=== PATIENT | male | born 1945 | race Caucasian/White ===

== ENCOUNTER → 2017-04-28 | Outpatient (REF) | payer OTHER ==
[2017-04-28 17:58] LABS: POTASSIUM SERUM 3.9 MEQ/L (3.5-5.1)
== END ==
LOC: M SFHCCLAY 09:45
PROVIDERS: ATTEND Nurse Practitioner Family
DX: R73.9 Hyperglycemia, unspecified (principal); I10 Essential (primary) hypertension

== ENCOUNTER 2018-01-31 12:33 | Emergency (ER) | payer OTHER ==
[2018-01-31 13:47] LABS: BASO # 0.1 10^3/uL (0.0-0.2); BASO % 0.5 % (0.0-1.0); EOS # 0.6 10^3/uL (0.0-0.50); EOS % 4.9 % (0.0-3.0); HEMATOCRIT 45.5 % (42.0-52.0); HEMOGLOBIN 15.4 g/dl (14.0-18.0); IMMATURE GRANULOCYTE % 0.3 % (0-3.0); LYMPH # 1.3 10^3/uL (1.5-4.5); LYMPH % 10.8 % (24.0-44.0); MEAN CORPUSCULAR HEMOGLOBIN 30.1 pg (27.0-33.0); MEAN CORPUSCULAR HGB CONC 33.8 g/dl (32.0-36.5); MEAN CORPUSCULAR VOLUME 88.9 fl (80.0-96.0); MONO % 8.1 % (0.0-5.0); NEUTROPHILS # 8.8 10^3/uL (1.8-7.7); NEUTROPHILS % 75.4 % (36.0-66.0); PLATELET COUNT, AUTOMATED 201 10^3/uL (150-450); RED BLOOD COUNT 5.12 10^6/uL (4.30-6.10); RED CELL DISTRIBUTION WIDTH 13.2 % (11.5-14.5); WHITE BLOOD COUNT 11.7 10^3/uL (4.0-10.0)
[2018-01-31 14:01] LABS: ANION GAP 7 MEQ/L (8-16); BLOOD UREA NITROGEN 19 MG/DL (7-18); CARBON DIOXIDE LEVEL 32 MEQ/L (21-32); CHLORIDE LEVEL 104 MEQ/L (98-107); CREATININE FOR GFR 1.35 MG/DL (0.70-1.30); GLOMERULAR FILTRATION RATE 55.6 (>42); GLUCOSE, FASTING 108 MG/DL (70-100); POTASSIUM SERUM 3.4 MEQ/L (3.5-5.1); SODIUM LEVEL 143 MEQ/L (136-145)
[2018-01-31] MEDS ORDERED: ISOVUE-370 76% 100ML VIAL (Q9967) As Ordered (14:05)
== END 2018-01-31 15:41 | disposition home or self-care (01) ==
LOC: M ED 12:33
DX: D17.39 Benign lipomatous neoplasm of skin and subcutaneous tissue of other sites (principal); J18.9 Pneumonia, unspecified organism; I10 Essential (primary) hypertension; G30.9 Alzheimer's disease, unspecified; Z79.899 Other long term (current) drug therapy; Z79.82 Long term (current) use of aspirin; Z88.0 Allergy status to penicillin; Z88.8 Allergy status to other drugs, medicaments and biological substances; Z87.891 Personal history of nicotine dependence; Z80.0 Family history of malignant neoplasm of digestive organs; Z80.1 Family history of malignant neoplasm of trachea, bronchus and lung
CPT/HCPCS: Q9967

== ENCOUNTER → 2018-02-13 | Outpatient (CLI) | payer OTHER | LOC: M CLY 09:48 | DX: J98.6 Disorders of diaphragm (principal); R91.8 Other nonspecific abnormal finding of lung field | CPT/HCPCS: 71046 ==

== ENCOUNTER → 2018-03-02 | Outpatient (CLI) | payer OTHER ==
[~2018-03-02] MED LIST: ISOVUE-370 76% 100ML VIAL (Q9967) As Ordered
== END ==
LOC: M RAD 08:36
DX: R91.8 Other nonspecific abnormal finding of lung field (principal); R05 Cough
CPT/HCPCS: Q9967

== ENCOUNTER → 2018-06-05 | Outpatient (CLI) | payer OTHER | LOC: M CLY 08:08 | DX: M25.561 Pain in right knee (principal) | CPT/HCPCS: 84550 ==

== ENCOUNTER → 2018-06-05 | Outpatient (REF) | payer OTHER ==
[2018-06-05 11:40] LABS: HEMATOCRIT 42.4 % (42.0-52.0); HEMOGLOBIN 14.5 g/dl (13.5-17.5); MEAN CORPUSCULAR HEMOGLOBIN 29.4 pg (27.0-33.0); MEAN CORPUSCULAR HGB CONC 34.2 g/dl (32.0-36.5); PLATELET COUNT, AUTOMATED 176 10^3/uL (150-450); RED BLOOD COUNT 4.93 10^6/uL (4.30-6.10); RED CELL DISTRIBUTION WIDTH 13.8 % (11.5-14.5); WHITE BLOOD COUNT 7.4 10^3/uL (4.0-10.0)
[2018-06-05 11:44] LABS: ANION GAP 8 MEQ/L (8-16); BLOOD UREA NITROGEN 16 MG/DL (7-18); CALCIUM LEVEL 8.3 MG/DL (8.8-10.2); CARBON DIOXIDE LEVEL 31 MEQ/L (21-32); CHLORIDE LEVEL 106 MEQ/L (98-107); CREATININE FOR GFR 1.32 MG/DL (0.70-1.30); GLOMERULAR FILTRATION RATE 56.9 (>42); GLUCOSE, FASTING 118 MG/DL (70-100); POTASSIUM SERUM 3.3 MEQ/L (3.5-5.1); RHEUMATOID FACTOR QUANT < 10.0 IU/ML (<15.0); SODIUM LEVEL 145 MEQ/L (136-145); URIC ACID 5.4 MG/DL (3.5-7.2)
[2018-06-05 12:14] LABS: ERYTHROCYTE SEDIMENTATION RATE 26 mm/hr (0-20)
[2018-06-07 00:06] LABS: ANTINUCLEAR ANTIBODIES DIRECT Negative (Negative); Lyme Disease IgG/IgM Antibodie <0.91 ISR (0.00-0.90); Lyme Disease IgM Ab Quantitati <0.80 index (0.00-0.79)
== END ==
LOC: M SFHCCLAY 08:01
DX: M25.561 Pain in right knee (principal)
CPT/HCPCS: 84550

== ENCOUNTER 2018-06-20 12:43 | Emergency (ER) | payer OTHER ==
[2018-06-20] MEDS: NS 1,000 ML IV (13:25)
[2018-06-20 13:29] LABS: BASO % 0.6 % (0.0-1.0); EOS # 0.2 10^3/uL (0.0-0.50); EOS % 3.2 % (0.0-3.0); HEMATOCRIT 41.5 % (42.0-52.0); LYMPH # 1.4 10^3/uL (1.5-4.5); LYMPH % 20.5 % (24.0-44.0); MEAN CORPUSCULAR HEMOGLOBIN 29.7 pg (27.0-33.0); MEAN CORPUSCULAR HGB CONC 33.7 g/dl (32.0-36.5); MEAN CORPUSCULAR VOLUME 87.9 fl (80.0-96.0); MONO # 0.7 10^3/uL (0.0-0.8); NEUTROPHILS # 4.3 10^3/uL (1.8-7.7); NEUTROPHILS % 65.7 % (36.0-66.0); PLATELET COUNT, AUTOMATED 222 10^3/uL (150-450); RED BLOOD COUNT 4.72 10^6/uL (4.30-6.10); RED CELL DISTRIBUTION WIDTH 13.5 % (11.5-14.5); WHITE BLOOD COUNT 6.6 10^3/uL (4.0-10.0)
[2018-06-20 13:42] LABS: INR 1.06; PROTHROMBIN TIME 13.9 SECONDS (12.1-14.4)
[2018-06-20 13:43] LABS: PARTIAL THROMBOPLASTIN TIME 26.2 SECONDS (25.4-37.6)
[2018-06-20 13:47] LABS: ALBUMIN 3.2 GM/DL (3.2-5.2); ALBUMIN/GLOBULIN RATIO 0.91 (1.00-1.93); ALKALINE PHOSPHATASE 46 U/L (45-117); ALT/SGPT 20 U/L (12-78); ANION GAP 6 MEQ/L (8-16); AST/SGOT 12 U/L (7-37); BILIRUBIN,DIRECT 0.1 MG/DL (0.0-0.2); BILIRUBIN,TOTAL 0.5 MG/DL (0.2-1.0); BLOOD UREA NITROGEN 13 MG/DL (7-18); CALCIUM LEVEL 8.4 MG/DL (8.8-10.2); CARBON DIOXIDE LEVEL 27 MEQ/L (21-32); CHLORIDE LEVEL 109 MEQ/L (98-107); CREATININE FOR GFR 1.16 MG/DL (0.70-1.30); GLOMERULAR FILTRATION RATE > 60.0 (>42); GLUCOSE, FASTING 96 MG/DL (70-100); LIPASE 140 U/L (73-393); POTASSIUM SERUM 4.1 MEQ/L (3.5-5.1); SODIUM LEVEL 142 MEQ/L (136-145); TOTAL PROTEIN 6.7 GM/DL (6.4-8.2)
[2018-06-20] MEDS ORDERED: ISOVUE-370 76% 100ML VIAL (Q9967) As Ordered (13:51)
[2018-06-20 14:37] LABS: KETONE, URINE AUTO RFX NEGATIVE (NEGATIVE); LEUKOCYTE ESTERASE UR AUTO RFX NEGATIVE (NEGATIVE); NITRITE, URINE AUTO RFX NEGATIVE (NEGATIVE); RBC, URINE AUTO RFX TNTC /HPF (0-3); SPECIFIC GRAVITY UR AUTO RFX 1.008 (1.002-1.035); SQUAM EPITHELIAL CELL UR AURFX 0 /HPF (0-6); WBC, URINE AUTO RFX 14 /HPF (0-3)
== END 2018-06-20 16:24 | disposition home or self-care (01) ==
LOC: M ED 12:43
DX: R31.0 Gross hematuria (principal); I10 Essential (primary) hypertension; G30.9 Alzheimer's disease, unspecified; Z90.5 Acquired absence of kidney; Z79.899 Other long term (current) drug therapy; Z79.82 Long term (current) use of aspirin; Z88.0 Allergy status to penicillin; Z88.8 Allergy status to other drugs, medicaments and biological substances; Z87.891 Personal history of nicotine dependence
CPT/HCPCS: Q9967

== ENCOUNTER → 2018-08-03 | Outpatient (REF) | payer OTHER ==
[2018-08-03 13:51] LABS: GLUCOSE, FASTING 104 MG/DL (70-100)
[2018-08-03 13:51] LABS: POTASSIUM SERUM 3.7 MEQ/L (3.5-5.1); PSA SCREENING 0.79 NG/ML (< 4.0); TOTAL 25(OH) VITAMIN D 49.1 NG/ML (30.0-100.0); URIC ACID 6.1 MG/DL (3.5-7.2)
[2018-08-03 15:31] LABS: ESTIMATED AVERAGE GLUCOSE 114 MG/DL (60-110); HEMOGLOBIN A1c 5.6 %
== END ==
LOC: M SFHCCLAY 08:45
DX: R73.9 Hyperglycemia, unspecified (principal); Z00.00 Encounter for general adult medical examination without abnormal findings; M10.9 Gout, unspecified; E55.9 Vitamin D deficiency, unspecified; Z12.5 Encounter for screening for malignant neoplasm of prostate
CPT/HCPCS: 82947

== ENCOUNTER 2018-10-20 19:59 | Inpatient (IN) | payer OTHER, MEDICAID ==
[2018-10-20] MEDS: LORazepam 2 MG TAB PO (20:27)
[2018-10-20 21:00] LABS: HEMATOCRIT 39.4 % (42.0-52.0); HEMOGLOBIN 13.4 g/dl (13.5-17.5); MEAN CORPUSCULAR HEMOGLOBIN 30.4 pg (27.0-33.0); MEAN CORPUSCULAR VOLUME 89.3 fl (80.0-96.0); PLATELET COUNT, AUTOMATED 180 10^3/uL (150-450); RED BLOOD COUNT 4.41 10^6/uL (4.30-6.10); RED CELL DISTRIBUTION WIDTH 13.5 % (11.5-14.5); WHITE BLOOD COUNT 7.2 10^3/uL (4.0-10.0)
[2018-10-20 21:23] LABS: ANION GAP 6 MEQ/L (8-16); BLOOD UREA NITROGEN 19 MG/DL (7-18); CALCIUM LEVEL 8.4 MG/DL (8.8-10.2); CARBON DIOXIDE LEVEL 31 MEQ/L (21-32); CHLORIDE LEVEL 105 MEQ/L (98-107); CREATININE FOR GFR 1.46 MG/DL (0.70-1.30); GLOMERULAR FILTRATION RATE 50.7 (>42); GLUCOSE, FASTING 107 MG/DL (70-100); POTASSIUM SERUM 3.2 MEQ/L (3.5-5.1); SODIUM LEVEL 142 MEQ/L (136-145)
[2018-10-20] MEDS: POTASSIUM CHLORIDE 10 MEQ SR TABLET PO (22:00)
[2018-10-20] MEDS: NS 1,000 ML IV (22:15)
[2018-10-20 22:36] LABS: PHOSPHORUS LEVEL 3.3 MG/DL (2.5-4.9)
[2018-10-20] MEDS ORDERED: diphenhydrAMINE INJ 50MG/ML VIAL (J1200) IV (22:45)
[2018-10-20] MEDS ORDERED: LORazepam 2 MG/ML VIAL (J2060) IV (22:45)
[2018-10-21] MEDS ORDERED: METAL LOCK LOOP XX (02:26)
[2018-10-21 05:51] LABS: HEMATOCRIT 39.6 % (42.0-52.0); HEMOGLOBIN 13.4 g/dl (13.5-17.5); MEAN CORPUSCULAR HEMOGLOBIN 30.3 pg (27.0-33.0); MEAN CORPUSCULAR HGB CONC 33.8 g/dl (32.0-36.5); MEAN CORPUSCULAR VOLUME 89.6 fl (80.0-96.0); PLATELET COUNT, AUTOMATED 167 10^3/uL (150-450); RED BLOOD COUNT 4.42 10^6/uL (4.30-6.10); RED CELL DISTRIBUTION WIDTH 13.3 % (11.5-14.5); WHITE BLOOD COUNT 5.9 10^3/uL (4.0-10.0)
[2018-10-21 06:21] LABS: ANION GAP 5 MEQ/L (8-16); BLOOD UREA NITROGEN 15 MG/DL (7-18); CALCIUM LEVEL 8.2 MG/DL (8.8-10.2); CARBON DIOXIDE LEVEL 31 MEQ/L (21-32); CHLORIDE LEVEL 108 MEQ/L (98-107); CREATININE FOR GFR 1.28 MG/DL (0.70-1.30); GLUCOSE, FASTING 94 MG/DL (70-100); POTASSIUM SERUM 3.1 MEQ/L (3.5-5.1); SODIUM LEVEL 144 MEQ/L (136-145)
[2018-10-21] MEDS: HALOPERIDOL 5 MG/ML VIAL (J1630) IV (07:34)
[2018-10-21 08:40] LABS: FREE T4 0.96 NG/DL (0.76-1.46)
[2018-10-21] MEDS ORDERED: DONEPEZIL 5 MG TAB PO (09:00)
[2018-10-21] MEDS: CARVedilol 12.5 MG TAB PO ×2 (12:04→17:36)
[2018-10-21] MEDS: POTASSIUM CHLORIDE 10 MEQ SR TABLET PO ×3 (12:11→17:37)
[2018-10-21] MEDS: ASPIRIN 81 MG ENTERIC TAB PO (12:11)
[2018-10-21] MEDS: VITAMIN D 1,000 INTERNATIONAL UNITS TABLET PO (12:12)
[2018-10-21] MEDS: FEBUXOSTAT 40 MG TABLET (ULORIC) PO (12:12)
[2018-10-21] MEDS: MEMANTINE 5MG TABLET (NAMENDA) PO ×2 (12:12→21:59)
[2018-10-21] MEDS: hydroCHLOROthiazide 25 MG TAB PO (12:12)
[2018-10-21] MEDS: LOSARTAN 50 MG TAB PO (12:12)
[2018-10-21] MEDS: risperiDONE 0.5 MG TAB PO (12:12)
[2018-10-21] MEDS: ENOXAPARIN 40 MG/0.4 ML SYRINGE (J1650) SC (12:13)
[2018-10-21 12:26] LABS: APPEARANCE, URINE CLEAR (CLEAR); BACTERIA, URINE AUTO NEGATIVE (NEGATIVE); BILIRUBIN, URINE AUTO NEGATIVE (NEGATIVE); BLOOD, URINE BLOOD 1+ (NEGATIVE); COLOR, URINE STRAW (YELLOW); GLUCOSE, URINE (UA) AUTO NEGATIVE (NEGATIVE); KETONE, URINE AUTO NEGATIVE (NEGATIVE); LEUKOCYTE ESTERASE, URINE AUTO NEGATIVE (NEGATIVE); NITRITE, URINE AUTO NEGATIVE (NEGATIVE); PROTEIN, URINE AUTO NEGATIVE (NEGATIVE); RBC, URINE AUTO 4 /HPF (0-3); SPECIFIC GRAVITY URINE AUTO 1.008 (1.002-1.035); SQUAMOUS EPITHELIAL CELL UR AU 0 /HPF (0-6); UROBILINOGEN, URINE AUTO 0.2 mg/dL (0.0-2.0); WBC, URINE AUTO 1 /HPF (0-3)
[2018-10-21 12:36] LABS: CREATININE,RANDOM URINE 59.7 MG/DL; POTASSIUM RANDOM URINE 12.7 MEQ/L; SODIUM,RANDOM URINE 84 MEQ/L; TOTAL PROTEIN,RANDOM URINE 11.6 MG/DL (0.0-12.0); URIC ACID,RANDOM URINE 23.5 MG/DL
[2018-10-21] MEDS ORDERED: QUEtiapine FUMARATE 50 MG TAB PO (21:00)
[2018-10-21] MEDS: QUEtiapine FUMARATE 100 MG TAB PO (21:59)
[2018-10-21] MEDS: CitaloPRAM (CeleXA) 20 MG TAB PO (21:59)
[2018-10-21] MEDS: ROSUVASTATIN 10 MG TAB (CRESTOR) PO (22:00)
[2018-10-22] MEDS: HALOPERIDOL 5 MG/ML VIAL (J1630) IV (01:18)
[2018-10-22 07:12] LABS: ALBUMIN 3.3 GM/DL (3.2-5.2); ALKALINE PHOSPHATASE 51 U/L (45-117); ALT/SGPT 51 U/L (12-78); ANION GAP 5 MEQ/L (8-16); AST/SGOT 32 U/L (7-37); BILIRUBIN,TOTAL 0.6 MG/DL (0.2-1.0); BLOOD UREA NITROGEN 13 MG/DL (7-18); CALCIUM LEVEL 8.9 MG/DL (8.8-10.2); CARBON DIOXIDE LEVEL 32 MEQ/L (21-32); CHLORIDE LEVEL 108 MEQ/L (98-107); CREATININE FOR GFR 1.16 MG/DL (0.70-1.30); GLOMERULAR FILTRATION RATE > 60.0 (>42); GLUCOSE, FASTING 102 MG/DL (70-100); POTASSIUM SERUM 3.6 MEQ/L (3.5-5.1); SODIUM LEVEL 145 MEQ/L (136-145); TOTAL PROTEIN 6.3 GM/DL (6.4-8.2)
[2018-10-22] MEDS: FEBUXOSTAT 40 MG TABLET (ULORIC) PO (08:44)
[2018-10-22] MEDS: POTASSIUM CHLORIDE 10 MEQ SR TABLET PO ×3 (08:45→18:00)
[2018-10-22] MEDS: ASPIRIN 81 MG ENTERIC TAB PO (08:45)
[2018-10-22] MEDS: hydroCHLOROthiazide 25 MG TAB PO (08:45)
[2018-10-22] MEDS: VITAMIN D 1,000 INTERNATIONAL UNITS TABLET PO (08:45)
[2018-10-22] MEDS: risperiDONE 0.5 MG TAB PO (08:45)
[2018-10-22] MEDS: MEMANTINE 5MG TABLET (NAMENDA) PO ×2 (08:46→21:35)
[2018-10-22] MEDS: LOSARTAN 50 MG TAB PO (08:47)
[2018-10-22] MEDS: CARVedilol 12.5 MG TAB PO ×2 (08:48→21:35)
[2018-10-22] MEDS ORDERED: ENOXAPARIN 40 MG/0.4 ML SYRINGE (J1650) SC (09:00)
[2018-10-22] MEDS: ENOXAPARIN 40 MG/0.4 ML SYRINGE (J1650) SC (09:04)
[2018-10-22] MEDS: CitaloPRAM (CeleXA) 20 MG TAB PO (21:35)
[2018-10-22] MEDS: QUEtiapine FUMARATE 200 MG TAB PO (21:35)
[2018-10-22] MEDS: ROSUVASTATIN 10 MG TAB (CRESTOR) PO (21:36)
[2018-10-23 07:00] LABS: ANION GAP 6 MEQ/L (8-16); BLOOD UREA NITROGEN 14 MG/DL (7-18); CALCIUM LEVEL 8.7 MG/DL (8.8-10.2); CARBON DIOXIDE LEVEL 32 MEQ/L (21-32); CHLORIDE LEVEL 104 MEQ/L (98-107); CREATININE FOR GFR 1.21 MG/DL (0.70-1.30); GLOMERULAR FILTRATION RATE > 60.0 (>42); GLUCOSE, FASTING 95 MG/DL (70-100); POTASSIUM SERUM 3.4 MEQ/L (3.5-5.1); SODIUM LEVEL 142 MEQ/L (136-145)
[2018-10-23] MEDS: ENOXAPARIN 40 MG/0.4 ML SYRINGE (J1650) SC (08:58)
[2018-10-23] MEDS: FEBUXOSTAT 40 MG TABLET (ULORIC) PO (08:59)
[2018-10-23] MEDS: LOSARTAN 50 MG TAB PO (08:59)
[2018-10-23] MEDS: MEMANTINE 5MG TABLET (NAMENDA) PO ×2 (08:59→20:18)
[2018-10-23] MEDS: CARVedilol 12.5 MG TAB PO ×2 (08:59→20:19)
[2018-10-23] MEDS: VITAMIN D 1,000 INTERNATIONAL UNITS TABLET PO (09:00)
[2018-10-23] MEDS: hydroCHLOROthiazide 25 MG TAB PO (09:00)
[2018-10-23] MEDS: risperiDONE 0.5 MG TAB PO (09:00)
[2018-10-23] MEDS: ASPIRIN 81 MG ENTERIC TAB PO (09:00)
[2018-10-23] MEDS: POTASSIUM CHLORIDE 10 MEQ SR TABLET PO ×2 (09:00→20:19)
[2018-10-23 11:22] LABS: FOLATE 11.9 NG/ML (>5.4)
[2018-10-23 11:22] LABS: VITAMIN B12 LEVEL 343 PG/ML (247-911)
[2018-10-23] MEDS: ROSUVASTATIN 10 MG TAB (CRESTOR) PO (20:18)
[2018-10-23] MEDS: CitaloPRAM (CeleXA) 20 MG TAB PO (20:18)
[2018-10-23] MEDS: QUEtiapine FUMARATE 200 MG TAB PO (20:18)
[2018-10-23] MEDS: RAMELTEON 8 MG TAB (ROZEREM) PO (20:18)
[2018-10-24] MEDS ORDERED: PILL CRUSHER/CUTTER 1 EACH XX (06:30)
[2018-10-24 08:06] LABS: URINE BICARBONATE 5 mmol/L (.)
[2018-10-24] MEDS: ASPIRIN 81 MG ENTERIC TAB PO (08:22)
[2018-10-24] MEDS: MEMANTINE 5MG TABLET (NAMENDA) PO ×2 (08:22→20:20)
[2018-10-24] MEDS: risperiDONE 0.5 MG TAB PO (08:22)
[2018-10-24] MEDS: CARVedilol 12.5 MG TAB PO ×2 (08:22→20:21)
[2018-10-24] MEDS: LOSARTAN 50 MG TAB PO (08:23)
[2018-10-24] MEDS: VITAMIN D 1,000 INTERNATIONAL UNITS TABLET PO (08:23)
[2018-10-24] MEDS: FEBUXOSTAT 40 MG TABLET (ULORIC) PO (08:23)
[2018-10-24] MEDS: POTASSIUM CHLORIDE 10 MEQ SR TABLET PO ×2 (08:23→20:21)
[2018-10-24] MEDS: ENOXAPARIN 40 MG/0.4 ML SYRINGE (J1650) SC (08:24)
[2018-10-24] MEDS: hydroCHLOROthiazide 25 MG TAB PO (08:24)
[2018-10-24] MEDS ORDERED: LORazepam 2 MG/ML VIAL (J2060) IV (17:30)
[2018-10-24] MEDS: QUEtiapine FUMARATE 200 MG TAB PO (20:20)
[2018-10-24] MEDS: RAMELTEON 8 MG TAB (ROZEREM) PO (20:20)
[2018-10-24] MEDS: CitaloPRAM (CeleXA) 20 MG TAB PO (20:20)
[2018-10-24] MEDS: ROSUVASTATIN 10 MG TAB (CRESTOR) PO (20:21)
[2018-10-25] MEDS: hydroCHLOROthiazide 25 MG TAB PO (08:41)
[2018-10-25] MEDS: LOSARTAN 50 MG TAB PO (08:41)
[2018-10-25] MEDS: MEMANTINE 5MG TABLET (NAMENDA) PO ×2 (08:41→20:01)
[2018-10-25] MEDS: risperiDONE 0.5 MG TAB PO (08:41)
[2018-10-25] MEDS: CARVedilol 12.5 MG TAB PO ×2 (08:41→20:02)
[2018-10-25] MEDS: ASPIRIN 81 MG ENTERIC TAB PO (08:41)
[2018-10-25] MEDS: FEBUXOSTAT 40 MG TABLET (ULORIC) PO (08:42)
[2018-10-25] MEDS: POTASSIUM CHLORIDE 10 MEQ SR TABLET PO ×2 (08:42→20:02)
[2018-10-25] MEDS: VITAMIN D 1,000 INTERNATIONAL UNITS TABLET PO (08:42)
[2018-10-25] MEDS: ENOXAPARIN 40 MG/0.4 ML SYRINGE (J1650) SC (08:42)
[2018-10-25] MEDS: ACETAMINOPHEN TAB 650MG DOSE (2X325MG) PO (13:03)
[2018-10-25] MEDS: CitaloPRAM (CeleXA) 20 MG TAB PO (20:01)
[2018-10-25] MEDS: ROSUVASTATIN 10 MG TAB (CRESTOR) PO (20:01)
[2018-10-25] MEDS: QUEtiapine FUMARATE 200 MG TAB PO (20:01)
[2018-10-25] MEDS: RAMELTEON 8 MG TAB (ROZEREM) PO (20:02)
[2018-10-26] MEDS: MEMANTINE 5MG TABLET (NAMENDA) PO ×2 (08:57→21:06)
[2018-10-26] MEDS: LOSARTAN 50 MG TAB PO (08:57)
[2018-10-26] MEDS: POTASSIUM CHLORIDE 10 MEQ SR TABLET PO ×2 (08:57→21:06)
[2018-10-26] MEDS: hydroCHLOROthiazide 25 MG TAB PO (08:58)
[2018-10-26] MEDS: VITAMIN D 1,000 INTERNATIONAL UNITS TABLET PO (08:58)
[2018-10-26] MEDS: FEBUXOSTAT 40 MG TABLET (ULORIC) PO (08:58)
[2018-10-26] MEDS: ENOXAPARIN 40 MG/0.4 ML SYRINGE (J1650) SC (08:58)
[2018-10-26] MEDS: CARVedilol 12.5 MG TAB PO ×2 (08:58→21:10)
[2018-10-26] MEDS: risperiDONE 0.5 MG TAB PO (08:58)
[2018-10-26] MEDS: ASPIRIN 81 MG ENTERIC TAB PO (08:58)
[2018-10-26 09:00] LABS: ANION GAP 5 MEQ/L (8-16); BLOOD UREA NITROGEN 21 MG/DL (7-18); CALCIUM LEVEL 8.6 MG/DL (8.8-10.2); CARBON DIOXIDE LEVEL 31 MEQ/L (21-32); CHLORIDE LEVEL 107 MEQ/L (98-107); CREATININE FOR GFR 1.34 MG/DL (0.70-1.30); GLOMERULAR FILTRATION RATE 55.9 (>42); GLUCOSE, FASTING 100 MG/DL (70-100); POTASSIUM SERUM 4.5 MEQ/L (3.5-5.1); SODIUM LEVEL 143 MEQ/L (136-145)
[2018-10-26] MEDS ORDERED: LORazepam 2 MG/ML VIAL (J2060) IM (15:15)
[2018-10-26] MEDS: ROSUVASTATIN 10 MG TAB (CRESTOR) PO (21:06)
[2018-10-26] MEDS: QUEtiapine FUMARATE 200 MG TAB PO (21:06)
[2018-10-26] MEDS: RAMELTEON 8 MG TAB (ROZEREM) PO (21:06)
[2018-10-26] MEDS: CitaloPRAM (CeleXA) 20 MG TAB PO (21:07)
[2018-10-27] MEDS: POTASSIUM CHLORIDE 10 MEQ SR TABLET PO ×2 (09:37→21:17)
[2018-10-27] MEDS: LOSARTAN 50 MG TAB PO (09:38)
[2018-10-27] MEDS: CARVedilol 12.5 MG TAB PO ×2 (09:38→21:17)
[2018-10-27] MEDS: FEBUXOSTAT 40 MG TABLET (ULORIC) PO (09:38)
[2018-10-27] MEDS: MEMANTINE 5MG TABLET (NAMENDA) PO ×2 (09:38→21:16)
[2018-10-27] MEDS: VITAMIN D 1,000 INTERNATIONAL UNITS TABLET PO (09:39)
[2018-10-27] MEDS: ENOXAPARIN 40 MG/0.4 ML SYRINGE (J1650) SC (09:39)
[2018-10-27] MEDS: risperiDONE 0.5 MG TAB PO (09:39)
[2018-10-27] MEDS: ASPIRIN 81 MG ENTERIC TAB PO (09:39)
[2018-10-27] MEDS: hydroCHLOROthiazide 25 MG TAB PO (09:39)
[2018-10-27] MEDS: CitaloPRAM (CeleXA) 20 MG TAB PO (21:16)
[2018-10-27] MEDS: QUEtiapine FUMARATE 200 MG TAB PO (21:16)
[2018-10-27] MEDS: ROSUVASTATIN 10 MG TAB (CRESTOR) PO (21:16)
[2018-10-27] MEDS: RAMELTEON 8 MG TAB (ROZEREM) PO (21:16)
[2018-10-27] MEDS: ACETAMINOPHEN TAB 650MG DOSE (2X325MG) PO (21:16)
[2018-10-28] MEDS: VITAMIN D 1,000 INTERNATIONAL UNITS TABLET PO (08:47)
[2018-10-28] MEDS: risperiDONE 0.5 MG TAB PO (08:47)
[2018-10-28] MEDS: ACETAMINOPHEN TAB 650MG DOSE (2X325MG) PO ×3 (08:47→21:47)
[2018-10-28] MEDS: FEBUXOSTAT 40 MG TABLET (ULORIC) PO (08:48)
[2018-10-28] MEDS: MEMANTINE 5MG TABLET (NAMENDA) PO ×2 (08:48→20:54)
[2018-10-28] MEDS: hydroCHLOROthiazide 25 MG TAB PO (08:48)
[2018-10-28] MEDS: LOSARTAN 50 MG TAB PO (08:48)
[2018-10-28] MEDS: CARVedilol 12.5 MG TAB PO ×2 (08:49→20:53)
[2018-10-28] MEDS: ENOXAPARIN 40 MG/0.4 ML SYRINGE (J1650) SC (08:49)
[2018-10-28] MEDS: POTASSIUM CHLORIDE 10 MEQ SR TABLET PO ×2 (08:49→20:54)
[2018-10-28] MEDS: ASPIRIN 81 MG ENTERIC TAB PO (08:49)
[2018-10-28 10:18] LABS: BASO # 0.1 10^3/uL (0.0-0.2); BASO % 1.3 % (0.0-1.0); EOS # 0.2 10^3/uL (0.0-0.50); EOS % 3.7 % (0.0-3.0); HEMATOCRIT 38.2 % (42.0-52.0); HEMOGLOBIN 12.9 g/dl (13.5-17.5); IMMATURE GRANULOCYTE % 0.2 % (0-3.0); LYMPH # 1.5 10^3/uL (1.5-4.5); LYMPH % 27.2 % (24.0-44.0); MEAN CORPUSCULAR HEMOGLOBIN 30.6 pg (27.0-33.0); MEAN CORPUSCULAR HGB CONC 33.8 g/dl (32.0-36.5); MEAN CORPUSCULAR VOLUME 90.7 fl (80.0-96.0); MONO # 0.7 10^3/uL (0.0-0.8); NEUTROPHILS % 55.6 % (36.0-66.0); PLATELET COUNT, AUTOMATED 178 10^3/uL (150-450); RED BLOOD COUNT 4.21 10^6/uL (4.30-6.10); RED CELL DISTRIBUTION WIDTH 13.2 % (11.5-14.5); WHITE BLOOD COUNT 5.4 10^3/uL (4.0-10.0)
[2018-10-28 10:51] LABS: ANION GAP 5 MEQ/L (8-16); BLOOD UREA NITROGEN 22 MG/DL (7-18); CALCIUM LEVEL 8.6 MG/DL (8.8-10.2); CARBON DIOXIDE LEVEL 31 MEQ/L (21-32); CHLORIDE LEVEL 106 MEQ/L (98-107); CREATININE FOR GFR 1.22 MG/DL (0.70-1.30); GLOMERULAR FILTRATION RATE > 60.0 (>42); GLUCOSE, FASTING 79 MG/DL (70-100); SODIUM LEVEL 142 MEQ/L (136-145)
[2018-10-28] MEDS: CitaloPRAM (CeleXA) 20 MG TAB PO (20:53)
[2018-10-28] MEDS: QUEtiapine FUMARATE 200 MG TAB PO (20:54)
[2018-10-28] MEDS: RAMELTEON 8 MG TAB (ROZEREM) PO (20:54)
[2018-10-28] MEDS: ROSUVASTATIN 10 MG TAB (CRESTOR) PO (20:54)
[2018-10-29] MEDS: MEMANTINE 5MG TABLET (NAMENDA) PO ×2 (08:24→21:08)
[2018-10-29] MEDS: CARVedilol 12.5 MG TAB PO ×2 (08:24→21:07)
[2018-10-29] MEDS: ACETAMINOPHEN TAB 650MG DOSE (2X325MG) PO (08:24)
[2018-10-29] MEDS: VITAMIN D 1,000 INTERNATIONAL UNITS TABLET PO (08:24)
[2018-10-29] MEDS: LOSARTAN 50 MG TAB PO (08:25)
[2018-10-29] MEDS: hydroCHLOROthiazide 25 MG TAB PO (08:25)
[2018-10-29] MEDS: risperiDONE 0.5 MG TAB PO (08:25)
[2018-10-29] MEDS: POTASSIUM CHLORIDE 10 MEQ SR TABLET PO ×2 (08:25→21:08)
[2018-10-29] MEDS: ASPIRIN 81 MG ENTERIC TAB PO (08:25)
[2018-10-29] MEDS: ENOXAPARIN 40 MG/0.4 ML SYRINGE (J1650) SC (08:26)
[2018-10-29] MEDS: FEBUXOSTAT 40 MG TABLET (ULORIC) PO (08:26)
[2018-10-29] MEDS: CYCLOBENZAPRINE 10 MG TAB PO ×2 (14:26→21:08)
[2018-10-29] MEDS: ROSUVASTATIN 10 MG TAB (CRESTOR) PO (21:07)
[2018-10-29] MEDS: RAMELTEON 8 MG TAB (ROZEREM) PO (21:08)
[2018-10-29] MEDS: CitaloPRAM (CeleXA) 20 MG TAB PO (21:08)
[2018-10-29] MEDS: QUEtiapine FUMARATE 200 MG TAB PO (21:08)
[2018-10-30] MEDS: CYCLOBENZAPRINE 10 MG TAB PO ×3 (05:18→22:20)
[2018-10-30] MEDS: ENOXAPARIN 40 MG/0.4 ML SYRINGE (J1650) SC (09:00)
[2018-10-30] MEDS: MEMANTINE 5MG TABLET (NAMENDA) PO ×2 (09:36→22:21)
[2018-10-30] MEDS: FEBUXOSTAT 40 MG TABLET (ULORIC) PO (09:36)
[2018-10-30] MEDS: POTASSIUM CHLORIDE 10 MEQ SR TABLET PO ×2 (09:36→22:21)
[2018-10-30] MEDS: hydroCHLOROthiazide 25 MG TAB PO (09:37)
[2018-10-30] MEDS: ASPIRIN 81 MG ENTERIC TAB PO (09:37)
[2018-10-30] MEDS: risperiDONE 0.5 MG TAB PO (09:37)
[2018-10-30] MEDS: VITAMIN D 1,000 INTERNATIONAL UNITS TABLET PO (09:37)
[2018-10-30] MEDS: CARVedilol 12.5 MG TAB PO ×2 (09:41→22:21)
[2018-10-30] MEDS: LOSARTAN 50 MG TAB PO (09:42)
[2018-10-30] MEDS: FLEET ENEMA PR (14:01)
[2018-10-30] MEDS: MIRALAX *UNIT DOSE* 17GM PACKET PO ×2 (15:04→22:19)
[2018-10-30] MEDS: SENNA 8.6 MG TAB (SENOKOT) PO ×2 (15:05→22:20)
[2018-10-30] MEDS: CitaloPRAM (CeleXA) 20 MG TAB PO (22:20)
[2018-10-30] MEDS: QUEtiapine FUMARATE 200 MG TAB PO (22:20)
[2018-10-30] MEDS: RAMELTEON 8 MG TAB (ROZEREM) PO (22:20)
[2018-10-30] MEDS: ROSUVASTATIN 10 MG TAB (CRESTOR) PO (22:20)
[2018-10-31] MEDS: IBUPROFEN 600 MG TAB PO (00:25)
[2018-10-31] MEDS: ACETAMINOPHEN TAB 650MG DOSE (2X325MG) PO (02:53)
[2018-10-31] MEDS: CYCLOBENZAPRINE 10 MG TAB PO (05:19)
[2018-10-31] MEDS: FEBUXOSTAT 40 MG TABLET (ULORIC) PO (09:14)
[2018-10-31] MEDS: POTASSIUM CHLORIDE 10 MEQ SR TABLET PO (09:14)
[2018-10-31] MEDS: SENNA 8.6 MG TAB (SENOKOT) PO (09:14)
[2018-10-31] MEDS: hydroCHLOROthiazide 25 MG TAB PO (09:15)
[2018-10-31] MEDS: risperiDONE 0.5 MG TAB PO (09:15)
[2018-10-31] MEDS: VITAMIN D 1,000 INTERNATIONAL UNITS TABLET PO (09:15)
[2018-10-31] MEDS: MEMANTINE 5MG TABLET (NAMENDA) PO (09:15)
[2018-10-31] MEDS: MIRALAX *UNIT DOSE* 17GM PACKET PO (09:15)
[2018-10-31] MEDS: ASPIRIN 81 MG ENTERIC TAB PO (09:15)
[2018-10-31] MEDS: LOSARTAN 50 MG TAB PO (09:17)
[2018-10-31] MEDS: ENOXAPARIN 40 MG/0.4 ML SYRINGE (J1650) SC (09:17)
[2018-10-31] MEDS: CARVedilol 12.5 MG TAB PO (09:18)
== END 2018-10-31 10:45 | DRG 57 ==
LOC: M MS5PR 10-21 10:36 → M ED 19:59 → M ED INP 22:15
DX: G30.9 Alzheimer's disease, unspecified (principal); N17.9 Acute kidney failure, unspecified; F02.81 Dementia in other diseases classified elsewhere, unspecified severity, with behavioral disturbance; I12.9 Hypertensive chronic kidney disease with stage 1 through stage 4 chronic kidney disease, or unspecified chronic kidney disease; E78.5 Hyperlipidemia, unspecified; E87.6 Hypokalemia; R31.9 Hematuria, unspecified; N18.3 Chronic kidney disease, stage 3 (moderate); R33.9 Retention of urine, unspecified; Z90.5 Acquired absence of kidney; E86.0 Dehydration; Z79.82 Long term (current) use of aspirin; Z79.899 Other long term (current) drug therapy; Z88.0 Allergy status to penicillin; Z88.8 Allergy status to other drugs, medicaments and biological substances